=== PATIENT | male | born 1980 | race Two or more races ===

== ENCOUNTER 2024-09-19 13:56 | Inpatient (IN) | payer OTHER, SELFPAY ==
--- OUTSIDE RECORDS SUMMARY | 2013-06-19 05:23 | XMS_ITS | Continuity of Care Document ---
Author Organization [facility] Address [address] [place] [address] Phone Care Team Providers Care Manager Traffic Name Role Phone Magalys Ward RN Unavailable Unavailable Allergies, Adverse Reactions, Alerts Substance Reaction Status Criticality No Known allergies Procedures Procedure Date RN Welcome Visit Advance Directives Directive Yes / No Effective Date File Name No Information Encounters Encounter Description Practice Location Reason(s) For Visit Diagnoses Date Provider Providers Copied on Encounter [facility], [address] [place] [address],[address], [place], [id number], [place] tel:[phone] [facility] No Information 4 Ed Dowell. [address] [place] [address], [id number]. tel:[phone] [facility], [address] [place] [address],[address], [place], [id number], [place] tel:[phone] [facility] welcome visit (chief complaint) Other general medical examination for administrative purposes 0 4 No Information [facility], [address] [place] [address],[facility] [address], [place], [id number], [place] tel:[phone] [facility] Nondependent tobacco use disorderAbdomi nal pain, unspecified siteScreening for cystic fibrosis 6 Z-Converted Provider. . [facility], [address], [place], [place], [id number], [place] tel:[phone] [facility] Chronic hepatitis c without mention of hepatic coma 5 Z-Converted Provider. . [facility], [address], [place], [place], [id number], [place] tel:[phone] [facility] Other specified drug-induced mental disordersNonde pendent cocaine abuse, unspecified use 5 Z-Converted Provider. . [facility], [address], [place], [place], [id number], [place] tel:[phone] [facility] Nonspecific elevation of levels of transaminase or lactic acid dehydrogenase (ldh) 5 Z-Converted Provider. . [facility], [address], [place], [place], [id number], [place] tel:[phone] [facility] Opioid type dependence, unspecified useNondependen t cannabis abuse, unspecified use 5 Z-Converted Provider. . Family History Family Member Type Diagnosis Age At Onset Mother Problem (finding) coronary arterioscleros is Mother Problem (finding) diabetes melli tus in first degree relative Mother Problem (finding) hypertension Father Problem (finding) hypertension Payers Payer name Insurance type Covered democrat ID Authoriza tion(s) [facility] [id number] Social History Type Description Quantity Date Captured Comments Sex Male Smoking Status No Information Sexual Orientation Straight or heterosexual Chief Complaint And Reason For Visit No Information Reason For Referral Reason For Referral No Information Plan Of Treatment Date Type Action Status Goal Unhealthy drug use screening . Due on due Goal Document SOGI Information. D ue on due Goal Td vaccine. Due on 14 due Goal Influenza vaccine. Due on due Goal APE. Due on due Goal Tdap. Due on due History Of Present Illness Encounter Date Complaint History Of Prese nt Illness No Information Functional Status Date Functional Assessmen t No Information Instructions Date Instruction Additional Infor mation No Information Assessments Type Assessment Date No Information Patient Care Teams Name Effective Dates (start - stop) Status Members No Information
[2024-09-19 14:05] VITALS: BP 117/61; PULSE 60; RESP 18; TEMP 36.7; O2SAT 99; BMI 20.7
[2024-09-19 14:21] LABS: Hematocrit 35.7 % (42.0-52.0); Hemoglobin 12.1 g/dl (14.0-18.0); Mean Corpuscular HGB Conc 33.9 g/dl (31.0-36.0); Mean Corpuscular Hemoglobin 28.7 pg (27.0-33.0); Mean Corpuscular Volume 84.8 fL (80.0-98.0); NRBC Abs Auto 0.000 X10*3/uL (0.0-0.012); NRBC Pct Auto 0.0 /100WBC (0.0-0.2); Red Blood Count 4.21 X10*6/uL (4.60-5.80); White Blood Count 3.7 X10*3/uL (4.8-10.8)
[2024-09-19 14:22] LABS: Platelet Count 98 X10*3/uL (160-400)
[2024-09-19 14:41] LABS: Alanine Aminotransferase 48 U/L (0-40); Albumin Level 3.3 g/dL (3.5-5.0); Alkaline Phosphatase 62 U/L (39-117); Anion Gap 7 (12-20); Aspartate Amino Transferase 59 U/L (5-37); Blood Urea Nitrogen 10 mg/dL (9-16); Calcium 8.4 mg/dL (8.4-10.2); Carbon Dioxide 31 mmol/L (22-29); Chloride 108 mmol/L (96-108); Creatinine Clr Calc Pharmacy 113.2; Estimated Glomerular Filt Rate > 60; Magnesium 2.0 mg/dL (1.6-2.6); Potassium 4.0 mmol/L (3.3-5.1); Sodium 142 mmol/L (135-145); Total Protein 6.8 g/dL (6.5-8.0)
[2024-09-19 14:57] LABS: Atypical Lymph Absolute Manual 0.4 x10*3/uL; Atypical Lymphs Percent Manual 12 % (0-6); Band Neutrophils Percent 4 % (3-5); Basophils Abs Manual 0.1 X10*3/uL (0.0-0.2); Basophils Percent Manual 2 % (0-2); Eosinophils Percent Manual 1 % (0-4); Lymphocytes Absolute Manual 1.1 X10*3/uL (1.2-4.9); Lymphocytes Percent Manual 30 % (20-40); Monocytes Absolute Manual 0.3 X10*3/uL (0.1-1.2); Monocytes Percent Manual 8 % (2-11); Neutrophils Absolute Manual 1.7 X10*3/uL (2.0-8.3); Neutrophils Percent Manual 43 % (45-73)
[2024-09-19 14:58] LABS: Acetaminophen LAB < 3 mcg/mL (<30); Salicylate < 5.0 mg/dL (15-30)
[2024-09-19 14:59] LABS: RBC Morphology NORMAL
[2024-09-19 15:01] LABS: Toxic Vacuolation PRESENT
[2024-09-19 15:04] LABS: Appearance Urine Clear; Glucose Urine UA Negative (Negative); PH 6.5 (5.0-9.0); Specific Gravity - Urine 1.020 (1.005-1.025); UMIC TRIGGER UACC YES
[2024-09-19 15:11] LABS: UACC Culture Trigger YES
[2024-09-19 15:12] LABS: Cannabinoid Screen Urine POSITIVE (Not Detect)
--- NOTE | 2024-09-19 15:49 | ECG_ITS ---
Test Reason : CHECK PROLONGED QTC Blood Pressure : */* mmHG Vent. Rate : 57 BPM Atrial Rate : 57 BPM P-R Int : 108 ms QRS Dur : 94 ms QT Int : 454 ms P-R-T Axes : 54 63 61 degrees QTcB Int : 441 ms Sinus bradycardia with sinus arrhythmia with short SD Otherwise normal ECG No previous ECGs available Referred By: Generic ED Physician Electronically Signed By: RAGHAV DAVIS
--- NOTE | 2024-09-19 16:27 | ED_ITS ---
HPI - Psych General Chief Complaint: Psychiatric Symptoms Stated Complaint: SI Time Seen by Provider: 09/19/24 16:03 Source: patient and EMS Mode of arrival: EMS Limitations: no limitations History of Present Illness ED Provider: Dr. Jessica Morales HPI Narrative: patient comes to the emergency room via ambulance from [facility]. Patient states that he walked into [facility] asking to get help . According to the patient, he has increased life stressors. Patient states that he feels on worth the but denies SI or HI. Patient states that he is looking for detox for heroin addiction. Patient denies suicide attempts. However, patient does have history of suicide attempts by overdosing several years ago. Patient states that yesterday he used a bundle of heroin, denies alcohol abuse. patient states that he is homeless Related Data Home Medications ?Medication ?Instructions ?Recorded ?Confirmed clonidine HCl 0.1 mg tablet 0.1 mg PO TID PRN anxiety 09/19/24 09/19/24 hydroxyzine HCl 25 mg tablet 25 - 50 mg PO BID PRN anx iety 09/19/24 09/19/24 Allergies Allergy/AdvReac Type Severity Reaction Status Date / Time No Known Allergies Allergy Verified 09/19/24 14:11 Review of Systems 2 Review of Systems: Constitutional : No Weight loss, No Fever, No Chills, No Night Sweats, No Fatigue, No Malaise ENT/Mouth : No Hearing loss, No Ear Pain, No Nasal Congestion, No Sinus Pain, No Hoarseness, No sore throat, No Rhinorrhea, No Swallowing Difficulty Eyes: No Eye Pain, No Swelling, No Redness, No Foreign Body, No Discharge, No Vision Changes Cardiovascular : No Chest Pain, No SOB, No Dyspnea on Exertion, No Orthopnea, No Edema, No Palpitations Respiratory : No Cough, No Sputum, No Wheezing, No Smoke Exposure, No Dyspnea Gastrointestinal : No Nausea, No Vomiting, No Diarrhea, No Constipation, No abdominal Pain, No Hematochezia, No Melena Genitourinary : no irregular bleeding, No Dysuria, No Urinary Frequency, No Hematuria, No Urinary Incontinence, No Urgency, No Flank Pain, No Urinary Flow Changes, No Hesitancy Musculoskeletal : No joint pain, No Myalgias, No Joint Swelling Skin : No Skin Lesions, No rash Neuro : No Weakness, No Numbness, No Paresthesias, No Loss of Consciousness, No Dizziness, No Headache Psych : Patient complaining of depression, feeling worthless, depressed. Admits to narcotic abuse. Denies suicidal or homicidal ideation. Heme/Lymph: No Bruising, No Bleeding,No Lymphadenopathy Endocrine : No Polyuria, No Polydipsia, No Temperature Intolerance PMFSH Past Medical History Medical History Suicide attempt Polysubstance abuse Social History Social History Smoked in Last 30 Days: Yes Use of substances other than those prescribed or required for medical reasons: Yes Substance Use Type: Heroin Substance Use Frequency: Chronic Longstanding Advance Directives: No Advance Directives Information Provided: No Do you have a plan to hurt others: No Plan Physical Exam 2 Vital Signs: Vital Signs: Last Vital Signs Temp 98.1 F 09/19/24 14:05 Pulse 55 09/19/24 17:45 Resp 16 09/19/24 17:45 BP 113/71 09/19/24 17:45 Pulse Ox 99 09/19/24 17:45 O2 Del Method Room Air 09/19/24 17:45 BMI result Body Mass Index 20.7 Const: Other: Appearance: Alert. Oriented X3. No acute distress. Eyes: Pupils equal, round and reactive to light. ENT: Pharynx normal. Neck: Normal inspection. Neck supple. No lymph nodes noted. No crepitus CVS: Normal heart rate and rhythm. Pulses normal. Normal S1 and S2 Respiratory: No respiratory distress. Breath sounds normal. No Wheezing. No rales Abdomen: Soft and nontender. No rigidity. No distention. Skin: Skin warm and dry. Normal skin color. Normal skin turgor. Extremities: No lower extremity edema. No Lacerations. No Rash Neuro: Oriented X 3. No motor deficit. No sensory deficit. Moving all extremities. No slurred speech. CN 2 through 12 grossly intact Psych: calm, cooperative, avoids eye contact, curled up in bed Course Course Course Narrative: patient arrives via ambulance from [facility]. Patient was not inpatient over there. Patient reporting depression and polysubstance abuse, requesting detox for narcotics. The patient is already on methadone Medical Decision Making Medical Decision Making MDM Narrative: my interpretation of labs: Patient's hematology shows a slightly decreased WBC and platelet count. chemistry, urine toxicology positive for methadone, fentanyl, cocaine THC care team consult pending patient denies SI or HI, at this time, section 12 not indicated. I discussed the above-mentioned with the patient, patient states that he is aware that he has low white blood cell counts and platelets secondary to hepatitis-C. Patient states that he has never seeked treatment but he is willing to get treatment now. Patient gave verbal consent to get tested for hepatitis serology and also HIV. I discussed with the patient that some of his labs takes a long time to return. However, patient instructed to follow-up with Infectious Disease once he gets discharged. Patient agrees with plan. Also, if the labs to resolve but patient is in the emergency room, infectious disease consult may be obtained. The care team evaluated the patient, patient going to , admitted by JOSE Hood Differential Diagnosis Differential Diagnoses: The differential diagnosis associated with the presentation includes ( Anxiety, depression, alcohol abuse, polysubstance abuse, homeless) Admission/Observation Consideration of admission/observation: Escalation of care including admission/observation considered ( patient is waiting to be seen by the care team) Lab Data MDM Lab Attestation statement: I reviewed the patient's lab results. 09/19/24 14:17 09/19/24 14:17 Labs: Lab Results 09/19/24 09/19/24 Range/Units 14:17 14:54 WBC 3.7 L (4.8-10.8) X10*3/uL RBC 4.21 L (4.60-5.80) X10*6/uL Hgb 12.1 L (14.0-18.0) g/dl Hct 35.7 L (42.0-52.0) % MCV 84.8 (80.0-98.0) fL MCH 28.7 (27.0-33.0) pg MCHC 33.9 (31.0-36.0) g/dl RDW 14.1 (11.0-16.0) % Plt Count 98 L (160-400) X10*3/uL MPV 10.2 (9.4-12.4) fL Immature Gran % (Auto) Cancelled Neut % (Auto) Cancelled Lymph % (Auto) Cancelled [place] % (Auto) Cancelled Eos % (Auto) Cancelled Baso % (Auto) Cancelled Lymph # (Auto) Cancelled [place] # (Auto) Cancelled Eos # (Auto) Cancelled Baso # (Auto) Cancelled Abs Immat Gran (auto) Cancelled Absolute Neuts (auto) Cancelled Absolute Nucleated RBC 0.000 (0.0-0.012) X10*3/uL Nucleated RBC % (auto) 0.0 (0.0-0.2) /100WBC Neutrophils % (Manual) 43 L (45-73) % Band Neutrophils % 4 (3-5) % Lymphocytes % (Manual) 30 (20-40) % Atypical Lymphs % (Man) 12 H (0-6) % Monocytes % (Manual) 8 (2-11) % Eosinophils % (Manual) 1 (0-4) % Basophils % (Manual) 2 (0-2) % Abs Neuts (Manual) 1.7 L (2.0-8.3) X10*3/uL Lymphocytes # (Manual) 1.1 L (1.2-4.9) X10*3/uL Atyp Lymphs # (Manual) 0.4 x10*3/uL Monocytes # (Manual) 0.3 (0.1-1.2) X10*3/uL Basophils # (Manual) 0.1 (0.0-0.2) X10*3/uL Toxic Vacuolation PRESENT Platelet Estimate DECREASED (NORMAL) Plt Morphology Comment NORMAL RBC Morphology NORMAL Smear Tech's Comments MANUAL DIFF Sodium 142 (135-145) mmol/L Potassium 4.0 (3.3-5.1) mmol/L Chloride 108 (96-108) mmol/L Carbon Dioxide 31 H (22-29) mmol/L Anion Gap 7 L (12-20) BUN 10 (9-16) mg/dL Creatinine 0.74 (0.5-1.4) mg/dL Estim Creat Clear Calc 113.2 Estimated GFR > 60 Random Glucose 97 (60-115) mg/dL Calcium 8.4 (8.4-10.2) mg/dL Magnesium 2.0 (1.6-2.6) mg/dL Total Bilirubin 0.7 (0.0-1.0) mg/dL AST 59 H (5-37) U/L ALT 48 H (0-40) U/L Alkaline Phosphatase 62 (39-117) U/L Total Protein 6.8 (6.5-8.0) g/dL Albumin 3.3 L (3.5-5.0) g/dL Urine Color Dark Yellow Urine Appearance Clear Urine pH 6.5 (5.0-9.0) Ur Specific [place] 1.020 (1.005-1.025) Urine Protein Trace (Neg-Trace) mg/dL Urine Glucose (UA) Negative (Negative) mg/dL Urine Ketones Trace (Negative) mg/dL Urine Blood Negative (Negative) Urine Nitrite Negative (Negative) Ur Leukocyte Esterase Moderate (2+) H (Negative) Urine RBC 0-2 (0-2) /HPF Urine WBC 0-5 (0-5) /HPF Ur Squamous Epith Cells 3-5 (0-2) /HPF Urine Bacteria None Seen (None Seen) Hyaline Casts 0-2 (0-2) /LPF Salicylates < 5.0 L (15-30) mg/dL Urine Opiates Screen POSITIVE H (Not Detect) Ur Buprenorphine Scrn Not Detected (Not Detect) ng/mL Ur Oxycodone Screen Not Detected (Not Detect) ng/mL Urine Methadone Screen Positive H (Not Detect) ng/mL Urine Fentanyl Screen POSITIVE H (Not Detect) Acetaminophen < 3 (<30) mcg/mL Ur Barbiturates Screen Not Detected (Not Detect) Ur Phencyclidine Scrn Not Detected (Not Detect) Ur Amphetamines Screen Not Detected (Not Detect) U Benzodiazepines Scrn Not Detected (Not Detect) Urine Cocaine Screen POSITIVE H (Not Detect) U Marijuana (THC) Screen POSITIVE H (Not Detect) Ethyl Alcohol < 10 mg/dL Critical Care Time Critical Care Time Critical Care Time: Yes Total Critical Care Time: 35 Attestation: I have personally provided critical care time. Time includes review of lab data, radiology results, discussion with consultants, and monitoring for potential decompensation. Intervention performed as documented. Discharge Plan Discharge Clinical Impression: Depression, Polysubstance abuse, Thrombocytopenia Patient Disposition: Admitted As Inpatient Interventions: [place]-Suicide Risk Severity Scale Last Done: 09/19/24 16:19
--- NOTE | 2024-09-19 16:33 | PC.NURSE ---
pt is alert and oriented, slightly drowsy but arousable, respirations even and unlabored, pt is calm and cooperative, denies si/hi states feeling hopeless and wants detox from heroin, pt is also on Methadone 100mg had his dose for today, goes to [facility] [address]
--- NOTE | 2024-09-19 17:02 | PC.NURSE ---
called [facility] to attempt to verify the pt's methadone but no answer
[2024-09-19 17:45] VITALS: BP 113/71; PULSE 55; RESP 16; O2SAT 99
--- NOTE | 2024-09-19 19:11 | PC.NURSE ---
Pt asleep on bed with sheet over head. Respirations unlabored and even.
[2024-09-19 21:56] VITALS: BP 113/64; PULSE 62; RESP 17; TEMP 37.2; O2SAT 95
--- NOTE | 2024-09-19 22:55 | PC.NURSE ---
Addendum entered by Karina Pierson 09/19/24 23:13: Per Magalie Acuña (inpt psych) Original Note: Per inpt provider, pt will come to floor without legal paper (CV) and sign when he arrives. this RN called [facility], plan for transport up to floor
--- NOTE | 2024-09-20 01:31 | PC.ADMIT ---
Pt is a 44 yo male,admitted on a CV to [facility] from [facility] for treatment MDD/SI and polysubstance use d/o. Pt was presented to [facility], asking for detox and help due to increased life stressors and feeling unworthy. Pt reported feeling helpless and hopeless, as he was recently kicked out of residential program at [place] [facility] due to his ongoing substance use. UTOX was positive for opiates,Methadone, Fentanyl, cocaine and marijuana. Per unit admission, Pt was A & Ox4 but was irritable and uncooperative with admission procedure, denies SI/HI/AH/VH. He states I don't want to do anything, I just want to go to bed . Pt refused to sign/fill any release forms, statement of understanding of valuable or my contact list. Safety/skin check was unremarkable, he refused v/s. Treatment plan and safety tools was initiated but yet to be signed.
[2024-09-20 04:22] LABS: HBS Num1 30.48 mIU/mL (0-7.99); HBc Num1 0.82 S/CO (0.00-0.79); HBsAGNum1 0.49 S/CO (0.00-0.99); HIV Num 1 0.05 S/CO (0.00-0.99); Hepatitis A Antibody IgM 0.36 Index (0-0.79); Hepatitis B Surface Antigen Negative (Negative); ~HepC Num1 14.41 S/CO (0.00-0.79); ~Hepatitis A Antibody IgM Nonreactive (Nonreactive); ~Hepatitis B Surface Antibody REACTIVE (Nonreactive); ~Hepatitis C Antibody Reactive (Nonreactive)
[2024-09-20 05:07] LABS: HBc Num2 0.87 S/CO; HBc Num3 0.87 S/CO
[2024-09-20 07:51] VITALS: BP 129/79; PULSE 54; RESP 20; TEMP 36.5; O2SAT 100
--- NOTE | 2024-09-20 08:13 | HE.PHANOTE ---
METHADONE Last received 100mg on 09/19/24 at [facility] ([phone]) per KELLY Layton.
[2024-09-20 08:49] VITALS: BP 140/80; BP 140/88; PULSE 55; RESP 14; O2SAT 100
[2024-09-20 09:06] LABS: Hemoglobin A1C 112.0816 umol/L; Total Hemoglobin (HGBA1C) 3495.4575 umol/L
[2024-09-20 09:07] LABS: Alanine Aminotransferase 50 U/L (0-40); Albumin Level 3.5 g/dL (3.5-5.0); Alkaline Phosphatase 73 U/L (39-117); Anion Gap 9 (12-20); Aspartate Amino Transferase 58 U/L (5-37); Blood Urea Nitrogen 11 mg/dL (9-16); Calcium 8.7 mg/dL (8.4-10.2); Carbon Dioxide 30 mmol/L (22-29); Chloride 105 mmol/L (96-108); Cholesterol 95 mg/dL (<200); Creatinine Clr Calc Pharmacy 113.2; Estimated Glomerular Filt Rate > 60; HDL Cholesterol 27 mg/dL (>40); Potassium 4.0 mmol/L (3.3-5.1); Sodium 140 mmol/L (135-145); Total Protein 7.1 g/dL (6.5-8.0); Triglycerides 95 mg/dL (<150)
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
[2024-09-20 09:20] LABS: Free T4 (Free Thyroxine) 0.92 ng/dL (0.71-1.85); Thyroid Stimulating Hormone 0.99 uIU/mL (0.32-4.0)
[2024-09-20] MEDS: methADONE HCl 20 MG/2 ML ORAL.CONC 100 MG PO (09:27)
[2024-09-20 16:25] VITALS: BP 109/73
[2024-09-20 21:15] VITALS: BP 113/72; PULSE 58; RESP 16; TEMP 36.6; O2SAT 100
[2024-09-20 21:29] VITALS: BP 113/72
[2024-09-21] MEDS: methADONE HCl 20 MG/2 ML ORAL.CONC 100 MG PO (07:53)
[2024-09-21 08:08] VITALS: BP 85/54; PULSE 50; RESP 16; TEMP 36.6; O2SAT 97
[2024-09-21 13:33] VITALS: BP 90/62; PULSE 60
--- NOTE | 2024-09-21 14:26 | P.PNPSI_ITS ---
Subjective Subjective Date of Service: 09/21/24 Reason For Visit: SI Interim History: no issues. not nodding off, but appears peaked. encouraged to attend groups. awaiting word from rehabs. per staff, slept 7.5 hours. +dep/anx. eating. taking meds. sedated, nodding off. irritable when needs not met quickly. social. attended 1 group. Mental Status Exam Mental Status Exam Narrative: disheveled, wrapped in a blanket. cooperative. no PMA/PMR. alert. speech nml rate, decr amount, decr loudness, incr latency. thoughts linear and logical. affect cosntricted, hypo-intense, non-labile. mood not assessed. no SI/SIBI/HI/AVH expressed. Diagnostics Vital Signs (24Hr): Vital Signs - 24 hr 09/20/24 16:25 09/20/24 21:15 09/20/24 21:29 Temperature 97.9 F Pulse Rate 58 Respiratory Rate 16 Blood Pressure 109/73 113/72 113/72 Pulse Oximetry 100 Oxygen Delivery Method Room Air 09/21/24 08:08 09/21/24 13:33 Temperature 98 F Pulse Rate 50 60 Respiratory Rate 16 Blood Pressure 85/54 L 90/62 Pulse Oximetry 97 Oxygen Delivery Method Room Air BMI result Body Mass Index 20.7 Labs 09/19/24 14:17 09/20/24 08:26 Labs: Laboratory Results - last 48 hr 09/19/24 09/19/24 09/19/24 14:17 14:54 22:27 WBC 3.7 L RBC 4.21 L Hgb 12.1 L Hct 35.7 L MCV 84.8 MCH 28.7 MCHC 33.9 RDW 14.1 Plt Count 98 L MPV 10.2 Immature Gran % (Auto) Cancelled Neut % (Auto) Cancelled Lymph % (Auto) Cancelled [place] % (Auto) Cancelled Eos % (Auto) Cancelled Baso % (Auto) Cancelled Lymph # (Auto) Cancelled Major # (Auto) Cancelled Eos # (Auto) Cancelled Baso # (Auto) Cancelled Abs Immat Gran (auto) Cancelled Absolute Neuts (auto) Cancelled Absolute Nucleated RBC 0.000 Nucleated RBC % (auto) 0.0 Neutrophils % (Manual) 43 L Band Neutrophils % 4 Lymphocytes % (Manual) 30 Atypical Lymphs % (Man) 12 H Monocytes % (Manual) 8 Eosinophils % (Manual) 1 Basophils % (Manual) 2 Abs Neuts (Manual) 1.7 L Lymphocytes # (Manual) 1.1 L Atyp Lymphs # (Manual) 0.4 Monocytes # (Manual) 0.3 Basophils # (Manual) 0.1 Toxic Vacuolation PRESENT Platelet Estimate DECREASED Plt Morphology Comment NORMAL RBC Morphology NORMAL Smear Tech's Comments MANUAL DIFF Sodium 142 Potassium 4.0 Chloride 108 Carbon Dioxide 31 H Anion Gap 7 L BUN 10 Creatinine 0.74 Estim Creat Clear Calc 113.2 Estimated GFR > 60 Random Glucose 97 Estimat Average Glucose Hemoglobin A1c % Calcium 8.4 Magnesium 2.0 Total Bilirubin 0.7 AST 59 H ALT 48 H Alkaline Phosphatase 62 Total Protein 6.8 Albumin 3.3 L Triglycerides Cholesterol LDL Cholesterol, Calc HDL Cholesterol TSH Free T4 Urine Color Dark Yellow Urine Appearance Clear Urine pH 6.5 Ur Specific [place] 1.020 Urine Protein Trace Urine Glucose (UA) Negative Urine Ketones Trace Urine Blood Negative Urine Nitrite Negative Ur Leukocyte Esterase Moderate (2+) H Urine RBC 0-2 Urine WBC 0-5 Ur Squamous Epith Cells 3-5 Urine Bacteria None Seen Hyaline Casts 0-2 Salicylates < 5.0 L Urine Opiates Screen POSITIVE H Ur Buprenorphine Scrn Not Detected Ur Oxycodone Screen Not Detected Urine Methadone Screen Positive H Urine Fentanyl Screen POSITIVE H Acetaminophen < 3 Ur Barbiturates Screen Not Detected Ur Phencyclidine Scrn Not Detected Ur Amphetamines Screen Not Detected U Benzodiazepines Scrn Not Detected Urine Cocaine Screen POSITIVE H U Marijuana (THC) Screen POSITIVE H Ethyl Alcohol < 10 Hepatitis A IgM Ab Nonreactive Hep Bs Antigen Negative Hep Bs Antibody Hep B Core Total Ab Hepatitis C Ab (EIA) HIV 1&2 Ab/P24 Ag 4thGn 09/19/24 09/19/24 09/19/24 22:27 22:27 22:27 WBC RBC Hgb Hct MCV MCH MCHC RDW Plt Count MPV Immature Gran % (Auto) Neut % (Auto) Lymph % (Auto) Major % (Auto) Eos % (Auto) Baso % (Auto) Lymph # (Auto) Major # (Auto) Eos # (Auto) Baso # (Auto) Abs Immat Gran (auto) Absolute Neuts (auto) Absolute Nucleated RBC Nucleated RBC % (auto) Neutrophils % (Manual) Band Neutrophils % Lymphocytes % (Manual) Atypical Lymphs % (Man) Monocytes % (Manual) Eosinophils % (Manual) Basophils % (Manual) Abs Neuts (Manual) Lymphocytes # (Manual) Atyp Lymphs # (Manual) Monocytes # (Manual) Basophils # (Manual) Toxic Vacuolation Platelet Estimate Plt Morphology Comment RBC Morphology Smear Tech's Comments Sodium Potassium Chloride Carbon Dioxide Anion Gap BUN Creatinine Estim Creat Clear Calc Estimated GFR Random Glucose Estimat Average Glucose Hemoglobin A1c % Calcium Magnesium Total Bilirubin AST ALT Alkaline Phosphatase Total Protein Albumin Triglycerides Cholesterol LDL Cholesterol, Calc HDL Cholesterol TSH Free T4 Urine Color Urine Appearance Urine pH Ur Specific [place] Urine Protein Urine Glucose (UA) Urine Ketones Urine Blood Urine Nitrite Ur Leukocyte Esterase Urine RBC Urine WBC Ur Squamous Epith Cells Urine Bacteria Hyaline Casts Salicylates Urine Opiates Screen Ur Buprenorphine Scrn Ur Oxycodone Screen Urine Methadone Screen Urine Fentanyl Screen Acetaminophen Ur Barbiturates Screen Ur Phencyclidine Scrn Ur Amphetamines Screen U Benzodiazepines Scrn Urine Cocaine Screen U Marijuana (THC) Screen Ethyl Alcohol Hepatitis A IgM Ab Hep Bs Antigen Cancelled Hep Bs Antibody REACTIVE Cancelled Hep B Core Total Ab Nonreactive Cancelled Hepatitis C Ab (EIA) Reactive H HIV 1&2 Ab/P24 Ag 4thGn 09/19/24 09/20/24 22:27 08:26 WBC RBC Hgb Hct MCV MCH MCHC RDW Plt Count MPV Immature Gran % (Auto) Neut % (Auto) Lymph % (Auto) Major % (Auto) Eos % (Auto) Baso % (Auto) Lymph # (Auto) Major # (Auto) Eos # (Auto) Baso # (Auto) Abs Immat Gran (auto) Absolute Neuts (auto) Absolute Nucleated RBC Nucleated RBC % (auto) Neutrophils % (Manual) Band Neutrophils % Lymphocytes % (Manual) Atypical Lymphs % (Man) Monocytes % (Manual) Eosinophils % (Manual) Basophils % (Manual) Abs Neuts (Manual) Lymphocytes # (Manual) Atyp Lymphs # (Manual) Monocytes # (Manual) Basophils # (Manual) Toxic Vacuolation Platelet Estimate Plt Morphology Comment RBC Morphology Smear Tech's Comments Sodium 140 Potassium 4.0 Chloride 105 Carbon Dioxide 30 H Anion Gap 9 L BUN 11 Creatinine 0.74 Estim Creat Clear Calc 113.2 Estimated GFR > 60 Random Glucose 116 H Estimat Average Glucose 100 Hemoglobin A1c % 5.1 Calcium 8.7 Magnesium Total Bilirubin 0.6 AST 58 H ALT 50 H Alkaline Phosphatase 73 Total Protein 7.1 Albumin 3.5 Triglycerides 95 Cholesterol 95 LDL Cholesterol, Calc 49 HDL Cholesterol 27 L TSH 0.99 Free T4 0.92 Urine Color Urine Appearance Urine pH Ur Specific [place] Urine Protein Urine Glucose (UA) Urine Ketones Urine Blood Urine Nitrite Ur Leukocyte Esterase Urine RBC Urine WBC Ur Squamous Epith Cells Urine Bacteria Hyaline Casts Salicylates Urine Opiates Screen Ur Buprenorphine Scrn Ur Oxycodone Screen Urine Methadone Screen Urine Fentanyl Screen Acetaminophen Ur Barbiturates Screen Ur Phencyclidine Scrn Ur Amphetamines Screen U Benzodiazepines Scrn Urine Cocaine Screen U Marijuana (THC) Screen Ethyl Alcohol Hepatitis A IgM Ab Hep Bs Antigen Hep Bs Antibody Hep B Core Total Ab Hepatitis C Ab (EIA) Cancelled HIV 1&2 Ab/P24 Ag 4thGn Nonreactive Medications Medications Current Medications Acetaminophen (Acetaminophen 325 Mg Tablet) 650 mg PO Q6H PRN PRN Reason: Headache/Pain, Scale 1-10 Al Hydroxide/Mg Hydroxide (Magnesium Hydrox/Alum Hydrox 30 Ml Oral.Susp) 30 ml PO Q6H PRN PRN Reason: Heartburn/Nausea Clonidine HCl (Clonidine Hcl 0.1 Mg Tablet) 0.05 mg PO TID PRN; Protocol PRN Reason: Anxiety Last Admin: 09/21/24 13:38 Dose: 0.05 mg Hydroxyzine HCl (Hydroxyzine Hcl 25 Mg Tablet) 25 mg PO Q6H PRN PRN Reason: mild anxiety Magnesium Hydroxide (Milk Of Magnesia 30 Ml Oral.Susp) 30 ml PO DAILY PRN PRN Reason: Constipation Methadone HCl (Methadone Hcl 20 Mg/2 Ml Oral.Conc) 100 mg PO DAILY@0800 COUNTS INCLUDE 234 BEDS AT THE [facility] Last Admin: 09/21/24 07:53 Dose: 100 mg Nicotine (Nicotine 21 Mg Patch.Td24) 21 mg TRANSDERMA DAILY PRN PRN Reason: nicotine craving Nicotine Polacrilex (Nicotine Polacrilex 2 Mg Gum) 2 mg BUCCAL Q2H PRN PRN Reason: Nicotine Cravings Sertraline HCl (Sertraline Hcl 50 Mg Tablet) 50 mg PO DAILY COUNTS INCLUDE 234 BEDS AT THE [facility] Last Admin: 09/21/24 13:41 Dose: 50 mg Trazodone HCl (Trazodone Hcl 50 Mg Tablet) 50 mg PO BEDTIME MRX1 PRN PRN Reason: Insomnia Last Admin: 09/20/24 21:29 Dose: 50 mg Allergies Allergies Allergy/AdvReac Type Severity Reaction Status Date / Time No Known Allergies Allergy Verified 09/19/24 14:11 Assessment & Plan Assessment & Plan (1) Cocaine use disorder: Status: Acute Code(s): F14.10 - Cocaine abuse, uncomplicated (2) Opioid use disorder: Status: Acute Code(s): F11.90 - Opioid use, unspecified, uncomplicated (3) Cannabis use disorder: Status: Acute Code(s): F12.90 - Cannabis use, unspecified, uncomplicated (4) Nicotine use disorder: Status: Acute Code(s): F17.200 - Nicotine dependence, unspecified, uncomplicated (5) Depression: Status: Acute Code(s): F32.A - Depression, unspecified Plan 09/20: continue methadone and supportive care for opioid use disorder. supportive care for cocaine and cannabis withdrawal. NRT for nicotine use disorder. start zoloft 50 mg daily for depression/anxiety. rehab referral. 09/21: decrease clonidine PRNs to 0.05 mg each due to hypotension. supportive care otherwise. referrals to rehabs in, awaiting word. continue current mgmt. encouraged pt to attend groups. Reason for continued inpatient stay Substantial Risk for: inability to function and rapid decompensation Time Spent With Patient Time: Total time managing care of this patient today __25__ minutes.
[2024-09-21 20:00] VITALS: BP 100/55; PULSE 50; RESP 16; TEMP 37.1; O2SAT 97
[2024-09-21 21:38] VITALS: BP 103/60
[2024-09-22 08:00] VITALS: BP 90/55; PULSE 52; RESP 18; TEMP 36.9; O2SAT 100
[2024-09-22] MEDS: methADONE HCl 20 MG/2 ML ORAL.CONC 100 MG PO (08:17)
[2024-09-22 14:31] VITALS: BP 118/63; PULSE 68
--- NOTE | 2024-09-22 16:22 | P.PNPSI_ITS ---
Subjective Subjective Date of Service: 09/22/24 Reason For Visit: SI Interim History: in milieu, blanket-draped. informed it has been noted he is nodding off, will give through the weekend to complete cocaine detox but would be expected to be able to stay awake in groups, etc, come wednesday. aware methadone dosing may be decreased otherwise. c/o difficulty sleeping. agreed to schedule clonidine 0.1 mg at HS. educated re syncope and pre-syncope. per staff, refused zoloft several times yesterday before finally taking it. slept 6 hours. attended a group but slept the entire time. Mental Status Exam Mental Status Exam Narrative: disheveled, wrapped in a blanket. cooperative. no PMA/PMR. alert. speech nml rate, decr amount, decr loudness, incr latency. thoughts linear and logical. affect cosntricted, hypo-intense, non-labile. mood not assessed. no SI/SIBI/HI/AVH expressed. Diagnostics Vital Signs (24Hr): Vital Signs - 24 hr 09/21/24 20:00 09/21/24 21:38 09/22/24 08:00 Temperature 98.7 F 98.5 F Pulse Rate 50 52 Respiratory Rate 16 18 Blood Pressure 100/55 L 103/60 90/55 L Pulse Oximetry 97 100 Oxygen Delivery Method Room Air Room Air 09/22/24 14:31 Temperature Pulse Rate 68 Respiratory Rate Blood Pressure 118/63 Pulse Oximetry Oxygen Delivery Method BMI result Body Mass Index 20.7 Labs 09/19/24 14:17 09/20/24 08:26 Medications Medications Current Medications Acetaminophen (Acetaminophen 325 Mg Tablet) 650 mg PO Q6H PRN PRN Reason: Headache/Pain, Scale 1-10 Al Hydroxide/Mg Hydroxide (Magnesium Hydrox/Alum Hydrox 30 Ml Oral.Susp) 30 ml PO Q6H PRN PRN Reason: Heartburn/Nausea Clonidine HCl (Clonidine Hcl 0.1 Mg Tablet) 0.05 mg PO TID PRN; Protocol PRN Reason: Anxiety Last Admin: 09/22/24 14:33 Dose: 0.05 mg Clonidine HCl (Clonidine Hcl 0.1 Mg Tablet) 0.1 mg PO BEDTIME KARIE; Protocol Hydroxyzine HCl (Hydroxyzine Hcl 25 Mg Tablet) 25 mg PO Q6H PRN PRN Reason: mild anxiety Magnesium Hydroxide (Milk Of Magnesia 30 Ml Oral.Susp) 30 ml PO DAILY PRN PRN Reason: Constipation Methadone HCl (Methadone Hcl 20 Mg/2 Ml Oral.Conc) 100 mg PO DAILY@0800 [facility] Last Admin: 09/22/24 08:17 Dose: 100 mg Nicotine (Nicotine 21 Mg Patch.Td24) 21 mg TRANSDERMA DAILY PRN PRN Reason: nicotine craving Nicotine Polacrilex (Nicotine Polacrilex 2 Mg Gum) 2 mg BUCCAL Q2H PRN PRN Reason: Nicotine Cravings Sertraline HCl (Sertraline Hcl 50 Mg Tablet) 50 mg PO DAILY [facility] Last Admin: 09/22/24 08:56 Dose: 50 mg Trazodone HCl (Trazodone Hcl 50 Mg Tablet) 50 mg PO BEDTIME MRX1 PRN PRN Reason: Insomnia Last Admin: 09/20/24 21:29 Dose: 50 mg Allergies Allergies Allergy/AdvReac Type Severity Reaction Status Date / Time No Known Allergies Allergy Verified 09/19/24 14:11 Assessment & Plan Assessment & Plan (1) Cocaine use disorder: Status: Acute Code(s): F14.10 - Cocaine abuse, uncomplicated (2) Opioid use disorder: Status: Acute Code(s): F11.90 - Opioid use, unspecified, uncomplicated (3) Cannabis use disorder: Status: Acute Code(s): F12.90 - Cannabis use, unspecified, uncomplicated (4) Nicotine use disorder: Status: Acute Code(s): F17.200 - Nicotine dependence, unspecified, uncomplicated (5) Depression: Status: Acute Code(s): F32.A - Depression, unspecified Plan 09/20: continue methadone and supportive care for opioid use disorder. supportive care for cocaine and cannabis withdrawal. NRT for nicotine use disorder. start zoloft 50 mg daily for depression/anxiety. rehab referral. 09/21: decrease clonidine PRNs to 0.05 mg each due to hypotension. supportive care otherwise. referrals to rehabs in, awaiting word. continue current mgmt. encouraged pt to attend groups. 09/22: schedule clonidine 0.1 QHS for sleep/nightmares. continue current mgmt otherwise. stable, awaiting word from rehabs. Reason for continued inpatient stay Substantial Risk for: inability to function Time Spent With Patient Time: Total time managing care of this patient today ____ minutes.
[2024-09-22 19:50] VITALS: BP 111/64; PULSE 55; RESP 14; TEMP 36.3; O2SAT 98
[2024-09-23] VITALS (8 sets, daily range): BP systolic 80–115; BP diastolic 44–62; PULSE 51–81; RESP 16; TEMP 36.1–36.4; O2SAT 98
[2024-09-23] MEDS: methADONE HCl 20 MG/2 ML ORAL.CONC 100 MG PO (07:57)
--- NOTE | 2024-09-23 14:52 | P.PNPSI_ITS ---
Subjective Subjective Date of Service: 09/23/24 Reason For Visit: SI Subjective Notes: Conditional Voluntary Interim History: patient in bed much of day. Cooperative with encounter on entry writer's approach. He voices anxiety and concern about the recent taper of Clonidine dosage. SBP > 100 this afternoon. Mobile Therapist discussed that we'll give him a one-time dose of 0.1 mg and recheck his VS in 1 hour, then discuss further tomorrow. He was encouraged to increase PO fluid intake. Otherwise, he denies SI/HI/AVH. Medication Compliance: Yes Side effects from medications: Yes (?hypotension) Attending Groups: Intermittent Review of Systems Acute medical concerns: No Medical Review of Systems: unchanged Mental Status Exam Mental Status Exam Narrative: Appearance: casual attire, adequate grooming and hygiene Behavior: cooperative with encounter Orientation: alert, generally oriented to person, place, time Memory: grossly intact to recent/remote events Attention: able to attend to the encounter discussion Psychomotor Function: no agitation or slowing; no abnormal gestures or movements Speech: normal rate, tone, volume Mood: okay Affect: blunted Thought Process: coherent Thought Content: med dosing; denies SI/HI Hallucinations: denies AVH delusions: none evinced Insight: mild impairment Judgment: mild impairment Impulsivity: none noted Diagnostics Vital Signs (24Hr): Vital Signs - 24 hr 09/22/24 19:50 09/23/24 07:35 09/23/24 14:49 Temperature 97.3 F 97.0 F Pulse Rate 55 56 59 Respiratory Rate 14 16 Blood Pressure 111/64 80/44 L 103/62 Pulse Oximetry 98 98 Oxygen Delivery Method Room Air Room Air BMI result Body Mass Index 20.7 Labs 09/19/24 14:17 09/20/24 08:26 Medications Medications Current Medications Acetaminophen (Acetaminophen 325 Mg Tablet) 650 mg PO Q6H PRN PRN Reason: Headache/Pain, Scale 1-10 Al Hydroxide/Mg Hydroxide (Magnesium Hydrox/Alum Hydrox 30 Ml Oral.Susp) 30 ml PO Q6H PRN PRN Reason: Heartburn/Nausea Clonidine HCl (Clonidine Hcl 0.1 Mg Tablet) 0.05 mg PO TID PRN; Protocol PRN Reason: Anxiety Last Admin: 09/22/24 14:33 Dose: 0.05 mg Clonidine HCl (Clonidine Hcl 0.1 Mg Tablet) 0.1 mg PO BEDTIME KARIE; Protocol Last Admin: 09/22/24 20:16 Dose: 0.1 mg Clonidine HCl (Clonidine Hcl 0.1 Mg Tablet) 0.1 mg PO ONCE ONE; Protocol Stop: 09/23/24 14:52 Hydroxyzine HCl (Hydroxyzine Hcl 25 Mg Tablet) 25 mg PO Q6H PRN PRN Reason: mild anxiety Magnesium Hydroxide (Milk Of Magnesia 30 Ml Oral.Susp) 30 ml PO DAILY PRN PRN Reason: Constipation Methadone HCl (Methadone Hcl 20 Mg/2 Ml Oral.Conc) 100 mg PO DAILY@0800 [facility] Last Admin: 09/23/24 07:57 Dose: 100 mg Nicotine (Nicotine 21 Mg Patch.Td24) 21 mg TRANSDERMA DAILY PRN PRN Reason: nicotine craving Nicotine Polacrilex (Nicotine Polacrilex 2 Mg Gum) 2 mg BUCCAL Q2H PRN PRN Reason: Nicotine Cravings Sertraline HCl (Sertraline Hcl 50 Mg Tablet) 50 mg PO DAILY [facility] Last Admin: 09/23/24 08:25 Dose: 50 mg Trazodone HCl (Trazodone Hcl 50 Mg Tablet) 50 mg PO BEDTIME MRX1 PRN PRN Reason: Insomnia Last Admin: 09/22/24 20:16 Dose: 50 mg Allergies Allergies Allergy/AdvReac Type Severity Reaction Status Date / Time No Known Allergies Allergy Verified 09/19/24 14:11 Assessment & Plan Assessment & Plan (1) Cocaine use disorder: Status: Acute Code(s): F14.10 - Cocaine abuse, uncomplicated (2) Opioid use disorder: Status: Acute Code(s): F11.90 - Opioid use, unspecified, uncomplicated (3) Cannabis use disorder: Status: Acute Code(s): F12.90 - Cannabis use, unspecified, uncomplicated (4) Nicotine use disorder: Status: Acute Code(s): F17.200 - Nicotine dependence, unspecified, uncomplicated (5) Depression: Status: Acute Code(s): F32.A - Depression, unspecified Plan 09/20: continue methadone and supportive care for opioid use disorder. supportive care for cocaine and cannabis withdrawal. NRT for nicotine use disorder. start zoloft 50 mg daily for depression/anxiety. rehab referral. 09/21: decrease clonidine PRNs to 0.05 mg each due to hypotension. supportive care otherwise. referrals to rehabs in, awaiting word. continue current mgmt. encouraged pt to attend groups. 09/22: schedule clonidine 0.1 QHS for sleep/nightmares. continue current mgmt otherwise. stable, awaiting word from rehabs. 09/23: will give a one time dose of 0.1 mg clonidine and reassess VS Patient educated on: diagnosis and medication risk/benefits Informed Consent: understands Reason for continued inpatient stay Substantial Risk for: inability to function Time Spent With Patient Time: Total time managing care of this patient today ____ minutes.
[2024-09-24 08:00] VITALS: BP 101/64; PULSE 60; RESP 16; TEMP 36.8; O2SAT 98
[2024-09-24] MEDS: methADONE HCl 20 MG/2 ML ORAL.CONC 100 MG PO (08:20)
[2024-09-24 09:49] LABS: HCV Log PCR 4.07 Log IU/mL (NOT DETECTED); HepC Viral Load 11800 IU/mL (NOT DETECTED)
--- NOTE | 2024-09-24 17:25 | HO.PSYCHPN ---
Subjective Subjective Date of Service: 09/24/24 Reason For Visit: SI Subjective Notes: Conditional Voluntary Interim History: BP did not tolerate our attempted retrial of Clonidine 0.1 mg during the afternoon yesterday. He bottomed out and HS dose was held. 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 Denied SI/HI/AVH. Will f/u with primary team tomorrow. staff report that he has been in adequate behavioral control today. Medication Compliance: Yes Side effects from medications: Yes Attending Groups: Intermittent Review of Systems Acute medical concerns: No Medical Review of Systems: unchanged Mental Status Exam Mental Status Exam Narrative: Appearance: casual attire, adequate grooming and hygiene Behavior: cooperative with encounter Orientation: alert, generally oriented to person, place, time Memory: grossly intact to recent/remote events Attention: able to attend to the encounter discussion Psychomotor Function: no agitation or slowing; no abnormal gestures or movements Speech: normal rate, tone, volume Mood: okay Affect: appropriate to context Thought Process: coherent Thought Content: denies SI/HI Hallucinations: denies AVH delusions: none evinced Insight: mild impairment Judgment: mild impairment Impulsivity: none noted Diagnostics Vital Signs (24Hr): Vital Signs - 24 hr 09/23/24 19:40 09/23/24 21:18 09/23/24 21:20 Temperature 97.5 F Pulse Rate 58 51 81 Respiratory Rate 16 Blood Pressure 96/60 87/49 L 86/51 L Pulse Oximetry 98 Oxygen Delivery Method Room Air 09/23/24 21:55 09/23/24 22:15 09/24/24 08:00 Temperature 98.3 F Pulse Rate 66 56 60 Respiratory Rate 16 Blood Pressure 96/49 L 96/49 L 101/64 Pulse Oximetry 98 Oxygen Delivery Method Room Air BMI result Body Mass Index 20.7 Labs 09/19/24 14:17 09/20/24 08:26 Labs: Laboratory Results - last 48 hr 09/19/24 22:27 Hep C Viral Load 12830 H Hep C Viral Load Log 4.07 H Medications Medications Current Medications Acetaminophen (Acetaminophen 325 Mg Tablet) 650 mg PO Q6H PRN PRN Reason: Headache/Pain, Scale 1-10 Last Admin: 09/24/24 09:55 Dose: 650 mg Al Hydroxide/Mg Hydroxide (Magnesium Hydrox/Alum Hydrox 30 Ml Oral.Susp) 30 ml PO Q6H PRN PRN Reason: Heartburn/Nausea Clonidine HCl (Clonidine Hcl 0.1 Mg Tablet) 0.05 mg PO TID PRN; Protocol PRN Reason: Anxiety Last Admin: 09/22/24 14:33 Dose: 0.05 mg Clonidine HCl (Clonidine Hcl 0.1 Mg Tablet) 0.1 mg PO BEDTIME KARIE; Protocol Last Admin: 09/23/24 23:10 Dose: Not Given Hydroxyzine HCl (Hydroxyzine Hcl 25 Mg Tablet) 25 mg PO Q6H PRN PRN Reason: mild anxiety Last Admin: 09/23/24 23:06 Dose: 25 mg Magnesium Hydroxide (Milk Of Magnesia 30 Ml Oral.Susp) 30 ml PO DAILY PRN PRN Reason: Constipation Methadone HCl (Methadone Hcl 20 Mg/2 Ml Oral.Conc) 100 mg PO DAILY@0800 KARIE Last Admin: 09/24/24 08:20 Dose: 100 mg Nicotine (Nicotine 21 Mg Patch.Td24) 21 mg TRANSDERMA DAILY PRN PRN Reason: nicotine craving Nicotine Polacrilex (Nicotine Polacrilex 2 Mg Gum) 2 mg BUCCAL Q2H PRN PRN Reason: Nicotine Cravings Sertraline HCl (Sertraline Hcl 50 Mg Tablet) 50 mg PO DAILY KARIE Last Admin: 09/24/24 08:45 Dose: 50 mg Trazodone HCl (Trazodone Hcl 50 Mg Tablet) 50 mg PO BEDTIME MRX1 PRN PRN Reason: Insomnia Last Admin: 09/23/24 23:06 Dose: 50 mg Allergies Allergies Allergy/AdvReac Type Severity Reaction Status Date / Time No Known Allergies Allergy Verified 09/19/24 14:11 Assessment & Plan Assessment & Plan (1) Cocaine use disorder: Status: Acute Code(s): F14.10 - Cocaine abuse, uncomplicated (2) Opioid use disorder: Status: Acute Code(s): F11.90 - Opioid use, unspecified, uncomplicated (3) Cannabis use disorder: Status: Acute Code(s): F12.90 - Cannabis use, unspecified, uncomplicated (4) Nicotine use disorder: Status: Acute Code(s): F17.200 - Nicotine dependence, unspecified, uncomplicated (5) Depression: Status: Acute Code(s): F32.A - Depression, unspecified Plan 09/20: continue methadone and supportive care for opioid use disorder. supportive care for cocaine and cannabis withdrawal. NRT for nicotine use disorder. start zoloft 50 mg daily for depression/anxiety. rehab referral. 09/21: decrease clonidine PRNs to 0.05 mg each due to hypotension. supportive care otherwise. referrals to rehabs in, awaiting word. continue current mgmt. encouraged pt to attend groups. 09/22: schedule clonidine 0.1 QHS for sleep/nightmares. continue current mgmt otherwise. stable, awaiting word from rehabs. 09/23: will give a one time dose of 0.1 mg clonidine and reassess VS 09/24: no changes today Patient educated on: diagnosis and medication risk/benefits Informed Consent: understands Reason for continued inpatient stay Substantial Risk for: rapid decompensation Time Spent With Patient Time: Total time managing care of this patient today _20___ minutes.
[2024-09-24 19:25] VITALS: BP 101/57; PULSE 57; RESP 16; TEMP 36.6; O2SAT 100
[2024-09-25 07:17] VITALS: BP 103/56
[2024-09-25 07:30] VITALS: BP 103/66; PULSE 56; RESP 16; TEMP 36.6; O2SAT 97
[2024-09-25] MEDS: methADONE HCl 20 MG/2 ML ORAL.CONC 100 MG PO (08:08)
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
== END 2024-09-25 10:53 | DRG 754 ==
LOC: HO.ED 16:03 → HO.PADLT16 20:43
PROVIDERS: Nurse Practitioner Psychiatric/Mental Health; Admitting Provider Registered Nurse; Emergency Provider Emergency Medicine; Visit Provider Psychiatry & Neurology Psychiatry
DX: F32.A Depression, unspecified (principal); D69.6 Thrombocytopenia, unspecified; F11.20 Opioid dependence, uncomplicated; F14.10 Cocaine abuse, uncomplicated; I95.2 Hypotension due to drugs; T46.5X5A Adverse effect of other antihypertensive drugs, initial encounter; F12.93 Cannabis use, unspecified with withdrawal; F19.10 Other psychoactive substance abuse, uncomplicated; F17.210 Nicotine dependence, cigarettes, uncomplicated; Z91.51 Personal history of suicidal behavior; Z71.6 Tobacco abuse counseling; Z79.899 Other long term (current) drug therapy
CPT/HCPCS: 36415; 80053; 80061; 80143; 80179; 80307; 81001; 83036; 83735; 84439; 84443; 85007; 85027; 86704; 86706; 86709; 86803; 87086; 87340; 87389; 87522; 93005; 99285; S9485

== ENCOUNTER → 2024-09-19 15:49 | Outpatient (BNV) | payer OTHER, SELFPAY | PROVIDERS: Admitting Provider Registered Nurse; Emergency Provider Emergency Medicine; Visit Provider Internal Medicine | DX: I49.9 Cardiac arrhythmia, unspecified (principal); R00.1 Bradycardia, unspecified | CPT/HCPCS: 93010 ==

== ENCOUNTER → 2024-09-19 20:28 | Outpatient (BNV) | payer OTHER, SELFPAY | PROVIDERS: Admitting Provider Registered Nurse; Emergency Provider Emergency Medicine; Visit Provider Psychiatry & Neurology Psychiatry | DX: F14.10 Cocaine abuse, uncomplicated (principal); F11.90 Opioid use, unspecified, uncomplicated; F12.90 Cannabis use, unspecified, uncomplicated; F17.200 Nicotine dependence, unspecified, uncomplicated; F32.1 Major depressive disorder, single episode, moderate | CPT/HCPCS: 90792; 99232; 99239 ==